=== PATIENT | female | born 1965 | race Native Hawaiian/Other Pacific Islander ===

== ENCOUNTER 2016-09-13 23:51 | Emergency (ER) | payer BC ==
[2016-09-14 00:06] VITALS: TEMP 98.3
--- NOTE | 2016-09-14 00:56 | C.PDOC ---
History Of Present Illness 50 year old female presents to the ED with complaints of palpitations that started at 19:30 today. Patient states she also noted her blood pressure was high and denies chest pain, SOB, dizziness, or any other complaints at this time. Chief Complaint (Nursing): Palpitations History Per: Patient History/Exam Limitations: no limitations Onset/Duration Of Symptoms: Hrs Current Symptoms Are (Timing): Still Present Severity: Mild Associated Symptoms: denies: Nausea, Dyspnea, Diaphoresis Modifying Factors: None Exacerbating Factors: None Past Medical History Reviewed: Historical Data, Nursing Documentation, Vital Signs Vital Signs: Last Vital Signs Temp 98.3 F 09/14/16 00:02 Pulse 72 09/14/16 00:02 Resp 20 09/14/16 00:02 BP 148/89 09/14/16 00:02 Pulse Ox 99 09/14/16 01:09 - Medical History PMH: HTN Family History: States: Unknown Family Hx - Social History Hx Alcohol Use: No Hx Substance Use: No - Immunization History Hx Tetanus Toxoid Vaccination: No Hx Influenza Vaccination: No Hx Pneumococcal Vaccination: No Review Of Systems Except As Marked, All Systems Reviewed And Found Negative. Constitutional: Negative for: Fever, Chills Cardiovascular: Positive for: Palpitations. Negative for: Chest Pain, Light Headedness Respiratory: Negative for: Shortness of Breath Neurological: Negative for: Dizziness Physical Exam - Physical Exam Appears: Non-toxic, No Acute Distress Skin: Normal Color, Warm, Dry Head: Atraumatic, Normacephalic Eye(s): bilateral: Normal Inspection Oral Mucosa: Moist Chest: Symmetrical, No Deformity Cardiovascular: Rhythm Regular Respiratory: Normal Breath Sounds, No Accessory Muscle Use, No Rales, No Rhonchi , No Wheezing Extremity: Normal ROM, No Deformity Neurological/Psych: Oriented x3, Normal Speech, Normal Cognition, Other (No focal deficits) ED Course And Treatment - Laboratory Results Result Diagrams: 09/14/16 01:18 09/14/16 01:18 ECG: Interpreted By Me, Viewed By Me ECG Rhythm: Sinus Rhythm ECG Interpretation: Normal Rate From EC O2 Sat by Pulse Oximetry: 99 (Room air) Pulse Ox Interpretation: Normal Progress Note: EKG and Blood work ordered and reviewed. Patient treated with Xanax. Disposition Counseled Patient/Family Regarding: Diagnosis - Disposition Referrals: Faye Rosado MD [Staff Provider] - Disposition: HOME/ ROUTINE Disposition Time: 02:27 Condition: STABLE Instructions: Palpitations (ED), Hypertension (ED) - POA Present On Arrival: None - Clinical Impression Clinical Impression: Palpitations, Hypertension - Scribe Statement The provider has reviewed the documentation as recorded by the Scribe Ayaan Donald. Provider Attestation: All medical record entries made by the Scribe were at my direction and personally dictated by me. I have reviewed the chart and agree that the record accurately reflects my personal performance of the history, physical exam, medical decision making, and the department course for this patient. I have also personally directed, reviewed, and agree with the discharge instructions and disposition.
[2016-09-14 01:22] LABS: BASO % 0.2 % (0.0-2.0); EOS # 0.1 K/uL (0.0-0.7); EOS % 2.5 % (0.0-4.0); HEMATOCRIT 39.3 % (34.0-47.0); LYMPH # 1.6 K/uL (1.0-4.3); LYMPH % 27.4 % (20.0-40.0); MEAN CELL VOLUME 94.1 fL (81.0-99.0); MEAN CORPUSCULAR HEMOGLOBIN 31.1 pg (27.0-31.0); MEAN PLATELET VOLUME 9.2 fL (7.2-11.7); MONO # 0.4 K/uL (0.0-0.8); MONO % 6.4 % (0.0-10.0); WHITE BLOOD COUNT 5.9 K/uL (4.8-10.8)
[2016-09-14 01:34] LABS: CHLORIDE 102 mmol/L (98-107); POTASSIUM 4.1 mmol/L (3.6-5.2); SODIUM 143 mmol/L (132-148)
[2016-09-14 01:36] LABS: BILIRUBIN,TOTAL 0.4 mg/dL (0.2-1.3); GFR AFRICAN-AMERICAN > 60
[2016-09-14 01:37] LABS: ALB/GLOB RATIO 1.3 (1.0-2.1); ALKALINE PHOSPHATASE 116 U/L (38-126); ALT/SGPT 41 U/L (9-52); AST/SGOT 31 U/L (14-36); BLOOD UREA NITROGEN 16 mg/dL (7-17); CALCIUM 9.2 mg/dl (8.6-10.4); CARBON DIOXIDE 28 mmol/L (22-30); GLUCOSE,RANDOM 96 mg/dL (65-105); TOTAL PROTEIN 8.1 g/dL (6.3-8.3)
[2016-09-14 02:36] VITALS: BP 120/80; PULSE 70; RESP 14; O2SAT 98
--- NOTE | 2016-09-15 20:20 | CARD ---
APPROVED REPORT EKG Measurement Heart [id number] <Conclusion> Normal sinus rhythm Normal ECG
== END 2016-09-14 02:36 | disposition home or self-care (01) ==
LOC: C.ER 23:51
DX: I10 Essential (primary) hypertension (principal); R00.2 Palpitations